=== PATIENT | male | born 2000 | race Caucasian/White ===

== ENCOUNTER 2024-10-27 21:37 | Inpatient (IN) | payer SELFPAY ==
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
[2024-10-27 22:10] VITALS: BP 123/69; PULSE 76; RESP 18; TEMP 36.4; O2SAT 97
[2024-10-27 22:47] VITALS: BMI 25.7
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
--- NOTE | 2024-10-28 05:34 | HO.PM.IMCN ---
History of Present Illness Data of Consult Service Date: 10/28/24 Requesting physician: Mahsa Chopra Primary Care Provider: None Physician HPI Reason for consult: Medical H&P Patient is a 24-year-old trans female to male with hormone implant ?nexplanon in L upper arm, with a history of substance use disorder (meth, crack and marijuana), admitted to adult Psychiatry for mood disorder. The patient reported a history of auditory and visual hallucinations as well as history of suicide attempts, none previously. The patient is very short with responses and does not provide much information. Medical history was reviewed, patient reports no medical conditions or medications currently. He does smoke about 1 pack a day and we will rarely drink alcohol according to the patient. Review of Systems Constitutional: Constitutional: Denies body ache(s), Denies chills, Denies fatigue, Denies fever(s) and Denies headache(s) Eyes: Eyes: Denies change in vision ENT: Denies headache(s), Denies nasal congestion and Denies sore throat Cardiovascular: Cardiovascular: Denies chest pain, Denies leg edema and Denies dyspnea Respiratory: Respiratory: Denies cough, Denies dyspnea and Denies wheezing Gastrointestinal: Gastrointestinal: Denies abdominal pain, Denies nausea and Denies vomiting Genitourinary: Genitourinary: Denies dysuria Musculoskeletal: Musculoskeletal: Denies myalgias Integumentary/Breasts: Skin/Breast: Denies rash Neurologic: Denies confusion and Denies headache(s) Psychiatric: Psychiatric: Reports as per HPI and Denies confusion Endocrine: Endocrine: Denies fatigue Hematologic/Lymphatic: Hematologic/Lymphatic: Denies easy bleeding and Denies easy bruising Allergic/Immunologic: Allergic/Immunologic: Denies wheezing [facility] Medical History (Updated 10/28/24 @ 05:40 by Carolina Nunez PA-C) Tobacco use disorder Polysubstance use disorder Gender dysphoria Social History Household Members: None Housing: Homeless Do you presently have visiting nurse or other home services: No Patient Tobacco Use Status: Current everyday Tobacco user Tobacco use type: Cigarette Cigarettes Per Day: 25 Years Smoked: 4 Smoked in Last 30 Days: Yes e-Cigarette/Vaping Use: Former Use Frequency of e-Cigarette/Vaping Use: when available; last use one month ago Patient Interested in Nicotine Replacement: No Patient Given Instructions on How to Stop Smoking: No (declined Quitworks) Second Hand Smoke Exposure: Yes Advance Directives: No Advance Directives Information Provided: No Do you have a plan to hurt others: No Plan Recently lost weight without trying: No Nutrition Risks: No Nutritional Risk Poor oral hygiene: No Narrative: Rare social alcohol use. Uses meth, cocaine, last used about 1 week ago. Also uses marijuana. Meds Allergies Allergy/AdvReac Type Severity Reaction Status Date / Time No Known Allergies Allergy Verified 10/27/24 23:02 Active Medications: Current Medications Acetaminophen (Acetaminophen 325 Mg Tablet) 650 mg PO Q6H PRN PRN Reason: Headache/Pain, Scale 1-10 Al Hydroxide/Mg Hydroxide (Magnesium Hydrox/Alum Hydrox 30 Ml Oral.Susp) 30 ml PO Q6H PRN PRN Reason: Heartburn/Nausea Hydroxyzine HCl (Hydroxyzine Hcl 25 Mg Tablet) 25 mg PO Q6H PRN PRN Reason: mild anxiety Magnesium Hydroxide (Milk Of Magnesia 30 Ml Oral.Susp) 30 ml PO DAILY PRN PRN Reason: Constipation Nicotine (Nicotine 21 Mg Patch.Td24) 21 mg TRANSDERMA DAILY PRN PRN Reason: nicotine craving Nicotine Polacrilex (Nicotine Polacrilex 2 Mg Gum) 2 mg BUCCAL Q2H PRN PRN Reason: Nicotine Cravings Olanzapine (Olanzapine 5 Mg Tablet) 5 mg PO BID PRN PRN Reason: agitation Trazodone HCl (Trazodone Hcl 50 Mg Tablet) 50 mg PO BEDTIME MRX1 PRN PRN Reason: Insomnia Physical Exam Vital Signs and Narrative: Vital Signs: Last Vital Signs Temp 97.5 F 10/27/24 22:10 Pulse 76 10/27/24 22:10 Resp 18 10/27/24 22:10 BP 123/69 10/27/24 22:10 Pulse Ox 97 10/27/24 22:10 O2 Del Method Room Air 10/27/24 22:10 BMI result Body Mass Index 25.7 General: AOx3, no acute distress. Exam limited as patient uncooperative and does not want to uncover themselves from blankets or move. Resp: CTA bilaterally CVS: S1, S2, RRR GI: +BS, NT, no distention Skin: Warm, dry Neuro: Cranial nerves II-XII grossly intact bilaterally. Motor grossly intact bilaterally Extremities: No LE edema Psych: Appropriate affect Const: General: No confusion Orientation/consciousness: No confusion Neuro: General: No confusion Assessment and Plan (1) Medical clearance for psychiatric admission: Status: Acute (2) Polysubstance use disorder: Status: Acute (3) Gender dysphoria: Status: Acute (4) Tobacco use disorder: Status: Acute Plan Patient is a 24-year-old trans female to male with hormone implant ?nexplanon in L upper arm, with a history of substance use disorder (meth, crack and marijuana), admitted to adult Psychiatry for mood disorder. Mood disorder - plan per psych Polysubstance use disorder -- meth, cocaine, marijuana - addiction med consult Tobacco use disorder - nicotine replacement - smoking cessation encouraged Thank you for allowing me to participate in the pt's care. Signing off. Please contact the medical team if any questions or concerns.
--- NOTE | 2024-10-28 08:26 | P.HPPS_ITS ---
[facility] Date of Service: 10/28/24 Chief Complaint: Schizoaffective Disorder, Bipolar Type Sources of Information: patient interviewed, chart reviewed and crisis/core team assessment reviewed Additional Sources of Information: Emergency room documentation from [facility] Subjective Notes: Sands Warning and Conditional Voluntary Healthcare Proxy: No Guardianship: No Medical Problems Affecting Mental Status: No Narrative: OF NOTE: trans female to male, identifies by 1st name Leelee Met with patient. Discussed with nursing. Reviewed paperwork from [facility]. Overall patient was pretty vague and guarded and evasive. Reported not being sure why they were in this area from [place]. Reports they did not want any medications and did not feel they needed any help. Did endorse having suicidal thoughts in [place] but adamantly denied all symptoms now including depression, anxiety, suicidal thoughts or psychosis. Denied history of suicide attempts, but collateral information /documentation not consistent with same. Reports an main reason for being at the hospital in [place] was having headaches, then people's body language and movements impacted their mood which then led to being hospitalized. patient very vague and appears to minimize psychiatric history. Reported being on Abilify, Trileptal and Prozac in the past. Last on medications 1-2 months ago and thinks this may have been Abilify. Reports a diagnosis of schizoaffective disorder however adamantly denies symptoms consistent with same. Reports not feeling like they have any mental health issues or concerns and does not want medications. Denied any history of suicide attempts however collateral information not consistent with this. As per documentation from [facility]. Has a history of multiple suicide attempts. Last admitted to [facility] inpatient Psychiatry in June 2024. history of hallucinations and also comorbid crack, methamphetamine and marijuana use. Had also made homicidal statements while in the ER prior to transferring to [place]. Was given Depakote 1000 mg in the ED. Labs were unremarkable. EKG normal. No U tox was done Past Psychiatric History: patient very vague and appears to minimize history. Reported being on Abilify, Trileptal and Prozac in the past. Last on medications 1-2 months ago and thinks this may have been Abilify. Reports a diagnosis of schizoaffective disorder however adamantly denies symptoms consistent with same. Reports not feeling like they have any mental health issues or concerns and does not want medications. Denied any history of suicide attempts however collateral information not consistent with this. As per documentation from [place]. Has a history of multiple suicide attempts. Last admitted to [facility] inpatient Psychiatry in June 2024. history of hallucinations and also comorbid crack, methamphetamine and marijuana use. Had also made homicidal statements while in the ER prior to transferring to [place]. Was given Depakote 1000 mg in the ED. Labs were unremarkable. EKG normal. No U tox was done Medical Evaluation Reviewed: Hospitalist Vasyl Pending [facility] Medical History (Updated 10/28/24 @ 15:35 by Clarence Camp MD) Tobacco use disorder Polysubstance use disorder Gender dysphoria Social History: LIMITED INFORMATION REGARDING SAME. ON HOW SINCE 19 YEARS OLD. SINGLE. NO LEGAL ISSUES. NO CHILDREN. PER COLLATERAL DOCUMENTATION [facility] AND ADOPTED. Substance History: As per collateral information crack, methamphetamine and marijuana use Diagnostics Vital Signs (24Hr): Vital Signs - 24 hr 10/27/24 22:10 Temperature 97.5 F Pulse Rate 76 Respiratory Rate 18 Blood Pressure 123/69 Pulse Oximetry 97 Oxygen Delivery Method Room Air BMI result Body Mass Index 25.7 Labs 10/28/24 10:20 10/28/24 10:20 Meds/Allergies Allergies Allergies Allergy/AdvReac Type Severity Reaction Status Date / Time No Known Allergies Allergy Verified 10/27/24 23:02 Mental Status Exam Mental Status Exam Narrative: in bed. Hospital clothing. Fair self-care. Minimal engagement and vague and guarded at times. Alert and oriented. Denied feeling depressed, suicidal, homicidal or anxious. Denied psychosis. Insight and judgment does appear limited Assessment & Plan Assessment & Plan (1) Schizoaffective disorder: Status: Acute Code(s): F25.9 - Schizoaffective disorder, unspecified (2) Polysubstance use disorder: Status: Acute Code(s): F19.90 - Other psychoactive substance use, unspecified, uncomplicated Plan 24-year-old trans female to male, direct admission from [facility], patient vague with minimal engagement. Collateral information suggests history consistent with schizoaffective disorder and comorbid polysubstance use disorder. No recent U tox. Will encourage same. Has also been off medications for unclear amount of time. Patient adamantly denies all symptoms and does not want medications. Had signed CV paperwork. Did discuss three-day notice and sands warning, should patient show same. Otherwise will adjust to the milieu, encourage groups and report development and ongoing medication evaluation. Patient educated on: medication risk/benefits and therapeutic strategies Informed Consent: further education needed Reason for continued inpatient stay Substantial Risk for: harm to self and rapid decompensation Statement Statement: I have reviewed the history and physical and performed a pertinent examination on my patient. No changes have occurred unless specified. If the History and Physical was not performed prior to admission, the Hospitalist's service will be consulted for completing the admission physical. Time Spent With Patient Time: Total time managing care of this patient today ____ minutes.
[2024-10-28 10:30] LABS: MANUAL DIFF FLAG NO
[2024-10-28 10:36] LABS: Hematocrit 40.3 % (42.0-52.0); Hemoglobin 13.3 g/dl (14.0-18.0); Imm Gran Abs Auto 0.06 X10*3/uL (0.00-0.03); Imm Gran Pct Auto 0.8 % (0.0-0.4); Lymphocytes Absolute Auto 2.0 X10*3/uL (1.2-4.9); Mean Corpuscular HGB Conc 33.0 g/dl (31.0-36.0); Mean Corpuscular Hemoglobin 25.9 pg (27.0-33.0); Mean Corpuscular Volume 78.4 fL (80.0-98.0); NRBC Abs Auto 0.000 X10*3/uL (0.0-0.012); NRBC Pct Auto 0.0 /100WBC (0.0-0.2); Platelet Count 258 X10*3/uL (160-400); Red Blood Count 5.14 X10*6/uL (4.60-5.80); White Blood Count 8.0 X10*3/uL (4.8-10.8)
[2024-10-28 11:00] LABS: Alanine Aminotransferase 14 U/L (0-40); Albumin Level 4.3 g/dL (3.5-5.0); Alkaline Phosphatase 83 U/L (39-117); Anion Gap 12 (12-20); Aspartate Amino Transferase 22 U/L (5-37); Blood Urea Nitrogen 14 mg/dL (9-16); Calcium 9.2 mg/dL (8.4-10.2); Carbon Dioxide 26 mmol/L (22-29); Chloride 103 mmol/L (96-108); Cholesterol 271 mg/dL (<200); Creatinine Clr Calc Pharmacy 146.8; Estimated Glomerular Filt Rate > 60; HDL Cholesterol 41 mg/dL (>40); Hemoglobin A1C 117.6164 umol/L; Potassium 4.4 mmol/L (3.3-5.1); Sodium 137 mmol/L (135-145); Total Hemoglobin (HGBA1C) 3476.6059 umol/L; Total Protein 7.5 g/dL (6.5-8.0); Triglycerides 169 mg/dL (<150)
[2024-10-28 11:15] LABS: Free T4 (Free Thyroxine) 1.07 ng/dL (0.71-1.85); Thyroid Stimulating Hormone 0.49 uIU/mL (0.32-4.0)
[2024-10-28 13:00] VITALS: BP 109/69; PULSE 50; RESP 19; TEMP 36.6; O2SAT 100
[2024-10-28 20:00] VITALS: BP 145/71; PULSE 92; TEMP 37.1; O2SAT 98
--- NOTE | 2024-10-29 07:29 | P.PNPSI_ITS ---
Subjective Subjective Date of Service: 10/29/24 Reason For Visit: Schizoaffective Disorder, Bipolar Type Interim History: Met with pt. Discussed with nursing. Reports working on their own language with written signs and how they think what they say isnt what they mean when they speak its frustrating . Attempted to expand and conversation largely circular in nature. Able to appreciate there is clearly conversation happening and they are able to understand others when they speak and ask questions. Unclear if patients belief is thought disorder, delusional or being eccentric. Sleep OK. Eating. In milieu today. Declining medications I dont need any of those . Educated ref 3 day notice process and Sands warning should they pursue same. Attending Groups: No Review of Systems Acute medical concerns: No Review of Systems Review of Systems Unremarkable Mental Status Exam Mental Status Exam Narrative: in milieu. Casually dressed. Fair self-care. More engaged today. Still guarded. Thought form is circular and at times illogical. Alert and oriented. Denied feeling depressed, suicidal, homicidal or anxious. Denied psychosis. Insight and judgment does appear limited Diagnostics Vital Signs (24Hr): Vital Signs - 24 hr 10/28/24 13:00 10/28/24 20:00 Temperature 97.8 F 98.8 F Pulse Rate 50 92 Respiratory Rate 19 Blood Pressure 109/69 145/71 H Pulse Oximetry 100 98 Oxygen Delivery Method Room Air Room Air BMI result Body Mass Index 25.7 Labs 10/28/24 10:20 10/28/24 10:20 Labs: Laboratory Results - last 48 hr 10/28/24 10:20 WBC 8.0 RBC 5.14 Hgb 13.3 L Hct 40.3 L MCV 78.4 L MCH 25.9 L MCHC 33.0 RDW 13.3 Plt Count 258 MPV 10.2 Immature Gran % (Auto) 0.8 H Neut % (Auto) 65.5 Lymph % (Auto) 24.5 [place] % (Auto) 5.8 Eos % (Auto) 3.1 Baso % (Auto) 0.3 Lymph # (Auto) 2.0 [place] # (Auto) 0.5 Eos # (Auto) 0.3 Baso # (Auto) 0.0 Abs Immat Gran (auto) 0.06 H Absolute Neuts (auto) 5.2 Absolute Nucleated RBC 0.000 Nucleated RBC % (auto) 0.0 Sodium 137 Potassium 4.4 Chloride 103 Carbon Dioxide 26 Anion Gap 12 BUN 14 Creatinine 0.70 Estim Creat Clear Calc 146.8 Estimated GFR > 60 Random Glucose 86 Estimat Average Glucose 103 Hemoglobin A1c % 5.2 Calcium 9.2 Total Bilirubin 0.2 AST 22 ALT 14 Alkaline Phosphatase 83 Total Protein 7.5 Albumin 4.3 Triglycerides 169 H Cholesterol 271 H LDL Cholesterol, Calc 197 H HDL Cholesterol 41 TSH 0.49 Free T4 1.07 Medications Medications Current Medications Acetaminophen (Acetaminophen 325 Mg Tablet) 650 mg PO Q6H PRN PRN Reason: Headache/Pain, Scale 1-10 Al Hydroxide/Mg Hydroxide (Magnesium Hydrox/Alum Hydrox 30 Ml Oral.Susp) 30 ml PO Q6H PRN PRN Reason: Heartburn/Nausea Hydroxyzine HCl (Hydroxyzine Hcl 25 Mg Tablet) 25 mg PO Q6H PRN PRN Reason: mild anxiety Magnesium Hydroxide (Milk Of Magnesia 30 Ml Oral.Susp) 30 ml PO DAILY PRN PRN Reason: Constipation Nicotine (Nicotine 21 Mg Patch.Td24) 21 mg TRANSDERMA DAILY PRN PRN Reason: nicotine craving Nicotine Polacrilex (Nicotine Polacrilex 2 Mg Gum) 2 mg BUCCAL Q2H PRN PRN Reason: Nicotine Cravings Olanzapine (Olanzapine 5 Mg Tablet) 5 mg PO BID PRN PRN Reason: agitation Trazodone HCl (Trazodone Hcl 50 Mg Tablet) 50 mg PO BEDTIME MRX1 PRN PRN Reason: Insomnia Allergies Allergies Allergy/AdvReac Type Severity Reaction Status Date / Time No Known Allergies Allergy Verified 10/27/24 23:02 Assessment & Plan Assessment & Plan (1) Schizoaffective disorder: Status: Acute Code(s): F25.9 - Schizoaffective disorder, unspecified (2) Polysubstance use disorder: Status: Acute Code(s): F19.90 - Other psychoactive substance use, unspecified, uncomplicated Plan 24-year-old trans female to male, direct admission from [facility], patient vague with minimal engagement. Collateral information suggests history consistent with schizoaffective disorder and comorbid polysubstance use disorder. No recent U tox. Will encourage same. Has also been off medications for unclear amount of time. Patient adamantly denies all symptoms and does not want medications. Had signed CV paperwork. Did discuss three-day notice and sands warning, should patient show same. Otherwise will adjust to the milieu, encourage groups and report development and ongoing medication evaluation. 10/29: declining medications Reason for continued inpatient stay Substantial Risk for: harm to self and harm to others Time Spent With Patient Time: Total time managing care of this patient today ____ minutes.
[2024-10-29 08:11] VITALS: BP 136/65; PULSE 72; RESP 16; TEMP 36.8; O2SAT 96
[2024-10-29 20:00] VITALS: BP 118/67; PULSE 71; TEMP 36.4; O2SAT 97
[2024-10-30 08:00] VITALS: BP 98/63; PULSE 61; RESP 16; TEMP 36.4; O2SAT 98
--- NOTE | 2024-10-30 11:04 | HO.PSYCHPN ---
Subjective Subjective Date of Service: 10/30/24 Reason For Visit: Schizoaffective Disorder, Bipolar Type Interim History: Met with pt. 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 Was making statements last PM about certian male staff and hurting them outside. Still refusing medications being ordered. Educated ref 3 day notice process and Sands warning should they pursue same. Team might consider revoking CV. Medication Compliance: Yes Side effects from medications: No Attending Groups: No Review of Systems Acute medical concerns: No Review of Systems Review of Systems Unremarkable Mental Status Exam Mental Status Exam Narrative: in milieu. Casually dressed. Fair self-care. More engaged today. Still guarded. Thought form is circular and at times illogical. Alert and oriented. Denied feeling depressed, suicidal, homicidal (did make statements last night to staff) or anxious. Denied psychosis. Insight and judgment does appear limited Diagnostics Vital Signs (24Hr): Vital Signs - 24 hr 10/29/24 20:00 10/30/24 08:00 Temperature 97.5 F 97.6 F Pulse Rate 71 61 Respiratory Rate 16 Blood Pressure 118/67 98/63 Pulse Oximetry 97 98 Oxygen Delivery Method Room Air BMI result Body Mass Index 25.7 Labs 10/28/24 10:20 10/28/24 10:20 Labs: Laboratory Results - last 48 hr 10/28/24 10:20 TSH 0.49 Free T4 1.07 Medications Medications Current Medications Acetaminophen (Acetaminophen 325 Mg Tablet) 650 mg PO Q6H PRN PRN Reason: Headache/Pain, Scale 1-10 Al Hydroxide/Mg Hydroxide (Magnesium Hydrox/Alum Hydrox 30 Ml Oral.Susp) 30 ml PO Q6H PRN PRN Reason: Heartburn/Nausea Hydroxyzine HCl (Hydroxyzine Hcl 25 Mg Tablet) 25 mg PO Q6H PRN PRN Reason: mild anxiety Magnesium Hydroxide (Milk Of Magnesia 30 Ml Oral.Susp) 30 ml PO DAILY PRN PRN Reason: Constipation Nicotine (Nicotine 21 Mg Patch.Td24) 21 mg TRANSDERMA DAILY PRN PRN Reason: nicotine craving Nicotine Polacrilex (Nicotine Polacrilex 2 Mg Gum) 2 mg BUCCAL Q2H PRN PRN Reason: Nicotine Cravings Last Admin: 10/29/24 10:59 Dose: 2 mg Olanzapine (Olanzapine 5 Mg Tablet) 5 mg PO BID PRN PRN Reason: agitation Trazodone HCl (Trazodone Hcl 50 Mg Tablet) 50 mg PO BEDTIME MRX1 PRN PRN Reason: Insomnia Allergies Allergies Allergy/AdvReac Type Severity Reaction Status Date / Time No Known Allergies Allergy Verified 10/27/24 23:02 Assessment & Plan Assessment & Plan (1) Schizoaffective disorder: Status: Acute Code(s): F25.9 - Schizoaffective disorder, unspecified (2) Polysubstance use disorder: Status: Acute Code(s): F19.90 - Other psychoactive substance use, unspecified, uncomplicated Plan 24-year-old trans female to male, direct admission from [facility], patient vague with minimal engagement. Collateral information suggests history consistent with schizoaffective disorder and comorbid polysubstance use disorder. No recent U tox. Will encourage same. Has also been off medications for unclear amount of time. Patient adamantly denies all symptoms and does not want medications. Had signed CV paperwork. Did discuss three-day notice and sands warning, should patient show same. Otherwise will adjust to the milieu, encourage groups and report development and ongoing medication evaluation. 7/5: declining medications. S Educated ref 3 day notice process and Sands warning should they pursue same. 7/6: Still refusing medications being ordered. Team might consider revoking CV. Reason for continued inpatient stay Substantial Risk for: harm to others Time Spent With Patient Time: Total time managing care of this patient today ____ minutes.
[2024-10-30 20:00] VITALS: BP 105/61; PULSE 58; RESP 16; TEMP 36.4; O2SAT 99
[2024-10-31 07:51] VITALS: BP 100/62; PULSE 59; RESP 16; TEMP 36.4; O2SAT 96
--- NOTE | 2024-10-31 09:40 | P.PNPSI_ITS ---
Subjective Subjective Date of Service: 10/31/24 Reason For Visit: Schizoaffective Disorder, Bipolar Type Subjective Notes: Conditional Voluntary Healthcare Proxy: No Guardianship: No Medical Problems Affecting Mental Status: No Interim History: It was my choice to come here. Pt denies SI,HI- I would never hurt anyone, that is not who I am. Denies AH,VH. Denies current fears, worries, medical issues Precipitant to admit pt reports was I came for help to gather my thoughts, clear the psychic attack I felt out there-depression, anxiety, anger. My mood is improved. I have taken a break from the music genre which made me feel negative and gave me depression. Reports he is homeless, living in [place]. I would be open to a new co-op experience I have been trying to find an area where I would not be sabotaged, exploited. Reports no sx of illness. Does not take medications and has no interest. No therapy- the system is corrupt. Reports estrangement from family- no knowledge of their whereabouts-feels they had taken advantage of them, I killed them, not literally, they are out of my life. Reports recent crisis stabilization admit in [place]. Hx of [facility] however he has no interest in reconnecting with them. Acknowledged daily cannabis use- street sources- it makes more use to the substance Pt declines current treatment options, milieu, medication, OP planning. Pt would like to return to [place], my normal area Current hospitalization he reports goals as learn how to relax, and let the world roll off my shoulders . Medication Compliance: No Side effects from medications: No Attending Groups: No Review of Systems Acute medical concerns: No Medical Review of Systems: unchanged Review of Systems Review of Systems Denies Mental Status Exam Mental Status Exam Patient Appearance: Appropriate Patient Orientation: Person, Place, Time and Situation Level of Consciousness: Alert Patient Behavior: Appropriate, Talkative, Cooperative, Resistive to Care and Good Eye Contact Mood Description: Calm Affect Description: Calm Patient Cognition Impaired: No Ability to Follow Directions: Good Speech Pattern: Spontaneous Speech Memory Description: Episodic Impaired Hallucinations: Auditory (some self dialoguing noted) Delusions: Not Present Thought Process: Evasive Thought Content: positive for Evasive Judgement: Fair Diagnostics Vital Signs (24Hr): Vital Signs - 24 hr 10/30/24 20:00 10/31/24 07:51 Temperature 97.6 F 97.5 F Pulse Rate 58 59 Respiratory Rate 16 16 Blood Pressure 105/61 100/62 Pulse Oximetry 99 96 Oxygen Delivery Method Room Air Room Air BMI result Body Mass Index 25.7 Labs 10/28/24 10:20 10/28/24 10:20 Medications Medications Current Medications Acetaminophen (Acetaminophen 325 Mg Tablet) 650 mg PO Q6H PRN PRN Reason: Headache/Pain, Scale 1-10 Last Admin: 10/30/24 11:28 Dose: 650 mg Al Hydroxide/Mg Hydroxide (Magnesium Hydrox/Alum Hydrox 30 Ml Oral.Susp) 30 ml PO Q6H PRN PRN Reason: Heartburn/Nausea Hydroxyzine HCl (Hydroxyzine Hcl 25 Mg Tablet) 25 mg PO Q6H PRN PRN Reason: mild anxiety Magnesium Hydroxide (Milk Of Magnesia 30 Ml Oral.Susp) 30 ml PO DAILY PRN PRN Reason: Constipation Nicotine (Nicotine 21 Mg Patch.Td24) 21 mg TRANSDERMA DAILY PRN PRN Reason: nicotine craving Nicotine Polacrilex (Nicotine Polacrilex 2 Mg Gum) 2 mg BUCCAL Q2H PRN PRN Reason: Nicotine Cravings Last Admin: 10/29/24 10:59 Dose: 2 mg Olanzapine (Olanzapine 5 Mg Tablet) 5 mg PO BID PRN PRN Reason: agitation Trazodone HCl (Trazodone Hcl 50 Mg Tablet) 50 mg PO BEDTIME MRX1 PRN PRN Reason: Insomnia Allergies Allergies Allergy/AdvReac Type Severity Reaction Status Date / Time No Known Allergies Allergy Verified 10/27/24 23:02 Assessment & Plan Assessment & Plan (1) Schizoaffective disorder: Status: Acute Code(s): F25.9 - Schizoaffective disorder, unspecified (2) Polysubstance use disorder: Status: Acute Code(s): F19.90 - Other psychoactive substance use, unspecified, uncomplicated Plan 24-year-old trans female to male, direct admission from [facility], patient vague with minimal engagement. Collateral information suggests history consistent with schizoaffective disorder and comorbid polysubstance use disorder. No recent U tox. Will encourage same. Has also been off medications for unclear amount of time. Patient adamantly denies all symptoms and does not want medications. Had signed CV paperwork. Did discuss three-day notice and sands warning, should patient show same. Otherwise will adjust to the milieu, encourage groups and report development and ongoing medication evaluation. 10/29: declining medications. S Educated ref 3 day notice process and Sands warning should they pursue same. 10/30: Still refusing medications being ordered. Team might consider revoking CV. 10/31: Declines treatment options. Discharge 11/01/24. Pt plans to return to [place]. Reason for continued inpatient stay Substantial Risk for: stable for discharge Time Spent With Patient Time: Total time managing care of this patient today ____ minutes.
[2024-10-31 20:00] VITALS: BP 129/68; PULSE 70; RESP 16; TEMP 36.3; O2SAT 96
[2024-11-01 08:00] VITALS: BP 98/61; PULSE 65; RESP 16; TEMP 36.7; O2SAT 98
--- NOTE | 2024-11-01 09:48 | PM.PSYDC ---
DS: Providers Provider Date of admission: 10/27/24 21:37 Primary care physician: None Physician Consults: 10/27/24 23:03 Consult to Hospitalist Routine Comment: Consulting Provider: [facility] [place] [facility] Reason For Exam: External admission (H&P) DS: Diagnosis Discharge Diagnosis (1) Schizoaffective disorder: Status: Acute (2) Polysubstance use disorder: Status: Acute Data Data Completed and Pending Completed studies during hospitalization [Text1]: 10/28/24 10:20 WBC 8.0 RBC 5.14 Hgb 13.3 L Hct 40.3 L MCV 78.4 L MCH 25.9 L MCHC 33.0 RDW 13.3 Plt Count 258 MPV 10.2 Immature Gran % (Auto) 0.8 H Neut % (Auto) 65.5 Lymph % (Auto) 24.5 [place] % (Auto) 5.8 Eos % (Auto) 3.1 Baso % (Auto) 0.3 Lymph # (Auto) 2.0 [place] # (Auto) 0.5 Eos # (Auto) 0.3 Baso # (Auto) 0.0 Abs Immat Gran (auto) 0.06 H Absolute Neuts (auto) 5.2 Absolute Nucleated RBC 0.000 Nucleated RBC % (auto) 0.0 Sodium 137 Potassium 4.4 Chloride 103 Carbon Dioxide 26 Anion Gap 12 BUN 14 Creatinine 0.70 Estim Creat Clear Calc 146.8 Estimated GFR > 60 Random Glucose 86 Estimat Average Glucose 103 Hemoglobin A1c % 5.2 Calcium 9.2 Total Bilirubin 0.2 AST 22 ALT 14 Alkaline Phosphatase 83 Total Protein 7.5 Albumin 4.3 Triglycerides 169 H Cholesterol 271 H LDL Cholesterol, Calc 197 H HDL Cholesterol 41 TSH 0.49 Free T4 1.07 DS: Summary Time Spent with Patient Time attestation: Total time managing care of this patient today ____ minutes. Discharge Plan Discharge Anticipated Discharge Date/Time: 11/01/24 12:00 Patient Disposition: Xfer Other Discharge Diagnosis: Schizoaffective Disorder Polysubstance use disorder Tobacco Use Disorder Gender Dysphoria Referrals: Physician,None [Primary Care Provider, Medical] - 1 Week Discharge Orders: Discharge Order (Routine); Ordered 11/01/24 Ordered By: Sujey Lino Diet: Advance to usual diet Activity on Discharge: As tolerated Stand Alone Forms: Patient Portal Discharge page Print Language: Malagasy Care Plan Goals: Abstinence from substances Mood and Behavioral Stabilization Health Concerns: Abstinence from substances Mood and Behavioral Stabilization Plan of Treatment: Pt declines treatment at this time- medications, therapy, referrals. He plans to return to his area in [place] He is aware of how to access emergency services as needed. Assessment: No SI,HI,AH,VH No sx of acute gita or psychosis Pt declines treatment at this time, medicines, therapy, referrals.
== END 2024-11-01 11:45 | disposition other institution (70) | DRG 885 ==
PROVIDERS: Nurse Practitioner Psychiatric/Mental Health; Admitting Provider Psychiatry & Neurology Psychiatry; Visit Provider Clinical Nurse Specialist Psychiatric/Mental Health, Adult
DX: F25.9 Schizoaffective disorder, unspecified (principal); Z59.02 Unsheltered homelessness; F17.210 Nicotine dependence, cigarettes, uncomplicated; F64.0 Transsexualism; Z91.51 Personal history of suicidal behavior; F19.90 Other psychoactive substance use, unspecified, uncomplicated; Z71.6 Tobacco abuse counseling
CPT/HCPCS: 36415; 80053; 80061; 83036; 84439; 84443; 85025

== ENCOUNTER → 2024-10-27 21:37 | Outpatient (BNV) | payer SELFPAY | PROVIDERS: Admitting Provider Psychiatry & Neurology Psychiatry; Visit Provider Psychiatry & Neurology Psychiatry | DX: F25.0 Schizoaffective disorder, bipolar type (principal); F19.90 Other psychoactive substance use, unspecified, uncomplicated | CPT/HCPCS: 90792; 99231; 99232 ==

== ENCOUNTER → 2024-10-27 21:37 | Outpatient (BNV) | payer SELFPAY | PROVIDERS: Admitting Provider Psychiatry & Neurology Psychiatry; Visit Provider Physician Assistant | DX: Z00.8 Encounter for other general examination (principal); F19.90 Other psychoactive substance use, unspecified, uncomplicated; F64.9 Gender identity disorder, unspecified; F17.200 Nicotine dependence, unspecified, uncomplicated | CPT/HCPCS: 99222 ==